=== PATIENT | male | born 1955 | race Caucasian/White ===

== ENCOUNTER 2016-09-18 11:37 | Emergency (ER) | payer OTHER ==
[~2016-09-18] VITALS: Ht 177.8 cm; Wt 102.0 kg
[2016-09-18] MEDS ORDERED: CARV25 PO (11:46)
[2016-09-18] MEDS ORDERED: FLUO-191 PO (11:46)
[2016-09-18] MEDS ORDERED: TRAZ-147 PO (11:46)
[2016-09-18] MEDS ORDERED: LISI-662 PO (11:46)
[2016-09-18] MEDS ORDERED: ASA3 PO (11:46)
[2016-09-18] MEDS ORDERED: SIMV-260 PO (11:46)
[2016-09-18 16:53] VITALS: BP 131/73
== END 2016-09-18 17:06 | disposition home or self-care (01) ==
LOC: EMS 11:39
DX: M79.672 Pain in left foot (principal); I10 Essential (primary) hypertension; E78.00 Pure hypercholesterolemia, unspecified; F17.210 Nicotine dependence, cigarettes, uncomplicated
CPT/HCPCS: 29515; 99284